=== PATIENT | male | born 1955 | race Caucasian/White ===

== ENCOUNTER 2020-12-04 09:37 | Day surgery (SDC) | payer OTHER ==
[2020-11-30 14:34] VITALS: BMI 23.8
[2020-12-04] MEDS ORDERED: PROPOFOL 20 ML ONE ×3 (11:35)
[2020-12-04 12:05] VITALS: TEMP 97.8
[2020-12-04 13:17] VITALS: BP 101/65; PULSE 70
== END 2020-12-04 13:19 | disposition home or self-care (01) ==
LOC: FASU-ENDO 09:37
PROVIDERS: ATTEND Internal Medicine Gastroenterology
PROC: 0DJD8ZZ Inspection of Lower Intestinal Tract, Via Natural or Artificial Opening Endoscopic (ICD-10-PCS; principal; 2020-12-04 11:37)
DX: Z86.010 Personal history of colon polyps (principal)